=== PATIENT | male | born 1990 | race Caucasian/White ===

== ENCOUNTER 2017-03-31 13:07 | Emergency (ER) | payer OTHER ==
[2017-03-31] MEDS: AUGMENTIN 875 MG TAB PO (14:19)
== END 2017-03-31 14:23 | disposition home or self-care (01) ==
LOC: M ED 13:07
DX: S02.2XXA Fracture of nasal bones, initial encounter for closed fracture (principal); S00.83XA Contusion of other part of head, initial encounter; W50.0XXA Accidental hit or strike by another person, initial encounter; Y92.89 Other specified places as the place of occurrence of the external cause; Y99.0 Civilian activity done for income or pay
CPT/HCPCS: 70160